=== PATIENT | male | born 1935 | race Caucasian/White ===

== ENCOUNTER → 2016-10-15 | Outpatient (CLI) | payer MEDICARE, OTHER ==
[~2016-10-15] VITALS: Ht 172.7 cm; Wt 98.9 kg
[~2016-10-15] MED LIST: CITALOPRAM HBR20 MG PO; HYZAAR 50-12.51 EACH PO; LISINOPRIL40 MG PO; LORTAB 5-325 M1 EACH PO; PERCOCET 10-321 EACH PO; XARELTO10 MG PO
== END ==
LOC: OPSV2 10-12 11:00
DX: Z01.810 Encounter for preprocedural cardiovascular examination (principal); Z01.812 Encounter for preprocedural laboratory examination; Z01.818 Encounter for other preprocedural examination; I10 Essential (primary) hypertension; M17.11 Unilateral primary osteoarthritis, right knee; R01.1 Cardiac murmur, unspecified
CPT/HCPCS: 71020; 87081; 93005

== ENCOUNTER 2016-10-26 05:44 | Inpatient (IN) | payer MEDICARE, OTHER ==
[~2016-10-26] VITALS: Ht 172.7 cm; Wt 98.9 kg
[~2016-10-26 05:44] MED LIST changes: -PERCOCET 10-321 EACH PO; -XARELTO10 MG PO
[2016-10-27 06:10] LABS: HEMOGLOBIN 11.4 gm/dl (14.0-17.5); RED BLOOD COUNT 3.71 M/UL (4.20-5.50); WHITE BLOOD COUNT 8.2 K/UL (4.5-11.0)
[2016-10-27 06:28] LABS: BUN/CREATININE RATIO 22 (0-10)
[2016-10-28 05:59] LABS: WHITE BLOOD COUNT 7.6 K/UL (4.5-11.0)
[2016-10-28 06:02] LABS: HEMOGLOBIN 8.6 gm/dl (14.0-17.5); RED BLOOD COUNT 2.85 M/UL (4.20-5.50)
[2016-10-29 04:06] LABS: RED BLOOD COUNT 2.61 M/UL (4.20-5.50); WHITE BLOOD COUNT 6.8 K/UL (4.5-11.0)
[2016-10-29 04:24] LABS: BUN/CREATININE RATIO 22 (0-10)
[2016-10-29] MEDS ORDERED: XARELTO10 MG PO (13:01)
[2016-10-29] MEDS ORDERED: PERCOCET 10-321 EACH PO (13:01)
== END 2016-10-29 13:55 | disposition home or self-care (01) | DRG 470 ==
LOC: ZOBSOF 05:44 → ZEROF 10:13 → ZOBSOF 10:13 → M/S 14:50 → PROG CARE 10-27 22:21
PROVIDERS: Hospitalist; ADMIT Orthopaedic Surgery
PROC: 3E0T3BZ Introduction of Anesthetic Agent into Peripheral Nerves and Plexi, Percutaneous Approach (ICD-10-PCS; 2016-10-26)
PROC: 0SRC0J9 Replacement of Right Knee Joint with Synthetic Substitute, Cemented, Open Approach (ICD-10-PCS; principal; 2016-10-26 08:15)
DX: M17.11 Unilateral primary osteoarthritis, right knee (principal); D62 Acute posthemorrhagic anemia; I10 Essential (primary) hypertension; H91.90 Unspecified hearing loss, unspecified ear; Z96.652 Presence of left artificial knee joint; Z79.899 Other long term (current) drug therapy; F41.9 Anxiety disorder, unspecified
CPT/HCPCS: 36415; 36600; 73560; 80048; 80053; 82803; 83735; 84100; 85025; 86850; 86900; 86901; 97110; 97116; 97530; C1776; G0480; J0690; J1100; J2270; J2405; J2795; J3010; J3370; J7030; J7050; J7120

== ENCOUNTER → 2021-08-27 | Outpatient (CLI) | payer MEDICARE, OTHER ==
[~2021-08-27] MED LIST changes: +PERCOCET 10-321 EACH PO; +XARELTO10 MG PO
== END ==
LOC: OPSV 07:08
DX: C09.0 Malignant neoplasm of tonsillar fossa (principal)
CPT/HCPCS: C1751

== ENCOUNTER → 2021-09-22 | Outpatient (CLI) | payer MEDICARE, OTHER | LOC: KOH-I 09:59 | DX: C09.0 Malignant neoplasm of tonsillar fossa (principal) | CPT/HCPCS: 71046 ==